=== PATIENT | male | born 1930 | race Caucasian/White ===

== ENCOUNTER 2019-08-29 21:45 | Observation (INO) | payer MEDICARE, BC ==
[~2019-08-29] VITALS: Ht 180.3 cm; Wt 77.5 kg
[2019-08-29 22:11] LABS: BASOPHILS ABSOLUTE AUTO 0.07 K/mm3 (0.00-0.23); BASOPHILS PERCENT AUTO 1 % (0-2); EOSINOPHILS ABSOLUTE AUTO 0.23 K/mm3 (0.00-0.68); EOSINOPHILS PERCENT AUTO 3 % (0-6); Hematocrit 42.5 % (37.0-53.0); Hemoglobin 13.3 g/dL (13.5-17.5); IMMATURE GRAN ABSOLUTE AUTO 0.02 K/mm3 (0.00-0.10); IMMATURE GRAN PERCENT AUTO 0 % (0-1); LYMPHOCYTES ABSOLUTE AUTO 2.62 K/mm3 (0.84-5.20); LYMPHOCYTES PERCENT AUTO 30 % (21-46); MONOCYTES ABSOLUTE AUTO 0.77 K/mm3 (0.16-1.47); MONOCYTES PERCENT AUTO 9 % (4-13); Mean Corpuscular HGB 30.2 pg (26.0-34.0); Mean Corpuscular HGB Conc 31.3 g/dL (31.5-36.5); Mean Corpuscular Volume 96 fL (80-100); Mean Platelet Volume 11.2 fL (9.1-12.4); NEUTROPHILS ABSOLUTE AUTO 4.92 K/mm3 (1.96-9.15); NEUTROPHILS PERCENT AUTO 57 % (41-73); Platelet Count 175 K/mm3 (150-400); RDW Coefficient Variation 13.1 % (11.7-14.2); RDW Standard Deviation 46.9 fL (35.1-46.3); Red Blood Cell Count 4.41 M/mm3 (4.30-5.90); White Blood Cell Count 8.63 K/mm3 (4.00-11.30)
[2019-08-29 22:29] LABS: Alanine Aminotransfer (ALT/SGP 15 U/L (12-78); Albumin/Globulin Ratio 0.9 (0.8-1.8); Alk Phos 72 U/L (50-136); Anion Gap 6 mmol/L (6-16); Aspartate Aminotrans (AST/SGOT 15 U/L (12-37); Bilirubin, Total 0.5 mg/dL (0.1-1.0); Blood Urea Nitrogen 20 mg/dL (8-24); Bun/Creatinine Ratio 18.3 (12.0-20.0); CO2, Blood 30 mmol/L (21-32); Chloride, Blood 108 mmol/L (98-108); Creatinine, Blood 1.09 mg/dL (0.60-1.20); Globulin, Blood 3.5 g/dL (2.2-4.0); Glomerular Filtration Rate >60 (60-); Glucose, Blood 144 mg/dL (70-99); Potassium, Blood 3.6 mmol/L (3.5-5.5); Sodium, Blood 144 mmol/L (136-145); Total Protein, Blood 6.5 g/dL (6.4-8.2); Troponin I <0.015 ng/mL (0.000-0.040)
[2019-08-29] MEDS ORDERED: ARIPIPRAZOLE2 M1 PO (23:01)
[2019-08-29] MEDS ORDERED: ATORVASTATIN CA20 MG PO (23:02)
[2019-08-29] MEDS ORDERED: FINA5 PO (23:03)
[2019-08-29] MEDS ORDERED: Cymbalta30 MG PO (23:03)
[2019-08-29] MEDS ORDERED: LOSARTAN POTASS25 M2 PO (23:04)
[2019-08-29] MEDS ORDERED: RIVASTIGMINE1 EAC2 TD (23:04)
[2019-08-29] MEDS ORDERED: TRAZ50 PO (23:04)
[2019-08-29] MEDS ORDERED: FOLI1 PO (23:04)
[2019-08-29] MEDS ORDERED: COUMADIN2 MG PO ×2 (23:05→23:06)
[2019-08-29] MEDS ORDERED: Buspirone HCl10 MG PO (23:06)
[2019-08-29] MEDS ORDERED: LOPE2C PO (23:08)
[2019-08-29] MEDS ORDERED: COENZYME Q10200 MG PO (23:08)
[2019-08-29] MEDS ORDERED: OLANZAPINE2.5 MG PO (23:09)
[2019-08-29] MEDS ORDERED: MELA3 PO (23:09)
[2019-08-29] MEDS ORDERED: FERSU300 PO (23:09)
--- NOTE | 2019-08-30 01:35 | NUR ---
transfer report from Faby DUMONT RN on 88 year old Male DNR status being admitted OBS status with increased weakness falls, hypoxia. Lives with Son who accompanied to ER. PT had CT pulm angiogram with results pending. PT on anticoagulant coumadin. Lovenox given in ER. Per report hard of hearing & high fall risk. Await admission.
[2019-08-30 05:34] LABS: International Normalized Ratio 2.93; Prothrombin Time Results 29.5 Sec (9.7-11.5)
--- NOTE | 2019-08-30 06:01 | NUR ---
88 YEAR OLD Male with dementia and recent falls while on coumadin admitted obs status on tele monitoring. PT is very poor historian hard of hearing left hearing aides at home. Meds were verified with PT's Son in law in ER, PT unable to verify. PT unable to state when pacemaker was placed or why. He is 100% V paced rate 63. PT says he has never had followup after pacer placed. DNR status. PT with high fall risk precautions, bed alarm on , no attempts to climb out of bed unassisted. Denies acute distress. Pharmacy called to say they need med list verified, rx unclear. Will write order to verify current med list. multiple rx on list.
--- NOTE | 2019-08-30 17:13 | NUR ---
PT IS AOX3 WITH CONFUSION. PT HAS BEEN DOING WELL, BUT VERY [place]. PT UP IN CHAIR TODAY FOR MEALS AND IS A ONE PERSON WITH [employer] AND [employer]. A BIT UNSTEADY ON HIS FEET. PT DOES NOT USE CALL LIGHT WELL AT THIS TIME. PT IS NOW ON RA AND HAS BEEN DOING WELL, NO DISTRESS NOTED.
[2019-08-31 04:43] LABS: International Normalized Ratio 2.91; Prothrombin Time Results 29.3 Sec (9.7-11.5)
--- NOTE | 2019-08-31 06:19 | NUR ---
88 year old Male admitted with weakness falls had sleep study & echocardiogram. PT on room air has pacemaker 100 % paced on tele monitor. PT removed leads multiple times. Hx of dementia, pleasant with poor memory. Neg CT pulm angiogram. On room air all shift. Poor appetite took 1 ensure with setup & cues. Set off bed alarm x 1 when he wanted to urinate. HArd of hearing but able to communicate.
--- NOTE | 2019-08-31 17:26 | NUR ---
DISCHARGE PT DISCHARGED TO HOME WITH HH. THIS RN TALKED WITH SON-IN-LAW, NEGRITO ABOUT PT'S DISCHARGE. THIS RN ALSO EXPLAINED TO NEGRITO THAT SPREADER WOULD BE CALLING WITH AN APPT FOR A NEW PCP DUE TO PCP IN [place] DECLINED TO SEE PT. IV REMOVED WITHOUT DIFFICULTY. PT TRANSFERERD TO PRIVATE VEHICLE VIA WHEELCHAIR BY REFERRAL CLERK. BELONGINGS WITH PT.
== END 2019-08-31 15:38 | disposition home or self-care (01) ==
LOC: ER 21:45 → MEDS 21:46 → ENPENDDIS 08-31 11:00 → MEDS 08-31 15:38
PROVIDERS: Emergency Medicine; Pharmacist; ADMIT Internal Medicine
DX: R09.02 Hypoxemia (principal); I50.22 Chronic systolic (congestive) heart failure; G30.9 Alzheimer's disease, unspecified; F02.80 Dementia in other diseases classified elsewhere, unspecified severity, without behavioral disturbance, psychotic disturbance, mood disturbance, and anxiety; E11.9 Type 2 diabetes mellitus without complications; Z91.81 History of falling; Z66 Do not resuscitate; Z95.0 Presence of cardiac pacemaker; Z87.891 Personal history of nicotine dependence; Z88.2 Allergy status to sulfonamides; Z88.8 Allergy status to other drugs, medicaments and biological substances; Z79.899 Other long term (current) drug therapy; Z79.01 Long term (current) use of anticoagulants
CPT/HCPCS: 36415; 71045; 71260; 80053; 83880; 84443; 84484; 85025; 85610; 93005; 93010; 93306; 94761; 94762; 96372; 97116; 97162; 97165; 97530; 97535; 99285-25; G0378; J1650; Q9967